=== PATIENT | female | born 1980 | race Caucasian/White ===

== ENCOUNTER 2020-05-06 23:24 | Emergency (ER) | payer OTHER ==
[2020-05-07] MEDS ORDERED: TETANUS & DIPHTHERIA TOX,ADULT 0.5 ML VIAL ONE (00:26)
--- NOTE | 2020-05-07 02:00 | EDPHYS ---
Physician Documentation [facility] Name: France Avila Age: 39 yrs Sex: Female : 1980 Arrival Date: 05/06/2020 Time: 23:26 Bed 13 Private MD: ED Physician Juan C Bravo HPI: 05/06 23:58 This 39 yrs old Female presents to ER via Wheelchair with complaints of Fall kb Injury, Laceration To Head. 23:58 Details of fall: The patient fell from an upright position, while standing. Onset: The kb symptoms/episode began/occurred just prior to arrival. Associated injuries: The patient sustained injury to the head, hematoma, laceration, 2 cm(s). Severity of symptoms: At their worst the symptoms were moderate, in the emergency department the symptoms are unchanged. The patient has not experienced similar symptoms in the past. The patient has not recently seen a physician. 05/07 00:01 Pt reports she had been drinking tonight, got in the shower, slipped and fell causing kb laceration to back of her head. States she doesn't think she lost consciousness. Pt awake, alert and oriented x4. Historical: - Allergies: 05/06 23:40 No Known Allergies; jb4 - Home Meds: 23:40 None [Active]; jb4 - PMHx: 23:40 None; jb4 - PSHx: 23:40 VSG; jb4 - Immunization history:: Adult Immunizations up to date. - Social history:: Smoking status: Patient denies any tobacco usage or history of. Patient uses alcohol, patient/guardian reports recent binge of alcohol consumption. Patient/guardian denies using street drugs. ROS: 23:57 Constitutional: Negative for fever, chills, and weight loss, Cardiovascular: Negative kb for chest pain, palpitations, and edema, Respiratory: Negative for shortness of breath, cough, wheezing, and pleuritic chest pain, Abdomen/GI: Negative for abdominal pain, nausea, vomiting, diarrhea, and constipation, Back: Negative for injury and pain, MS/Extremity: Negative for injury and deformity, Neuro: Negative for headache, weakness, numbness, tingling, and seizure. 23:57 Skin: Positive for laceration(s), of the occipital area. Exam: 23:57 Constitutional: This is a well developed, well nourished patient who is awake, alert, kb and in no acute distress. Neck: Trachea midline, no thyromegaly or masses palpated, and no cervical lymphadenopathy. Supple, full range of motion without nuchal rigidity, or vertebral point tenderness. No Meningismus. Chest/axilla: Normal chest wall appearance and motion. Nontender with no deformity. No lesions are appreciated. Cardiovascular: Regular rate and rhythm with a normal S1 and S2. No gallops, murmurs, or rubs. Normal PMI, no JVD. No pulse deficits. Respiratory: Lungs have equal breath sounds bilaterally, clear to auscultation and percussion. No rales, rhonchi or wheezes noted. No increased work of breathing, no retractions or nasal flaring. Abdomen/GI: Soft, non-tender, with normal bowel sounds. No distension or tympany. No guarding or rebound. No evidence of tenderness throughout. Back: No spinal tenderness. No costovertebral tenderness. Full range of motion. MS/ Extremity: Pulses equal, no cyanosis. Neurovascular intact. Full, normal range of motion. Neuro: Awake and alert, GCS 15, oriented to person, place, time, and situation. Cranial nerves II-XII grossly intact. Motor strength 5/5 in all extremities. Sensory grossly intact. Cerebellar exam normal. Normal gait. 23:57 Skin: injury, laceration(s), the wound is approximately 2 cm(s), of the occipital area, that can be described as clean, no foreign body, linear, with mild bleeding. 05/07 01:56 Head/face: Noted is hematoma, a laceration(s), that is deep, 2 cm(s), of the left justin occipital area and right occipital area. Vital Signs: 05/06 23:40 BP 156 / 114; Pulse 115; Resp 16; Temp 98.2(O); Pulse Ox 99% on R/A; Weight 96.62 kg jb4 (R); Height 5 ft. 5 in. (165.10 cm); Pain 0/10; 05/07 00:30 BP 115 / 77; Pulse 75; Resp 16; Pulse Ox 100% on R/A; jb4 02:00 BP 110 / 75; Pulse 89; Resp 16; Pulse Ox 99% on R/A; jb4 05/06 23:40 Body Mass Index 35.44 (96.62 kg, 165.10 cm) jb4 Laceration: 01:56 Wound Repair of 2cm ( 0.8in ) subcutaneous laceration to right occipital area. Linear justin shaped.. Distal neuro/vascular/tendon intact. Anesthesia: none with 0 mls of 1% lidocaine. Wound prep: Simple cleansing by me. Skin closed with 3 titus Titus using staple gun. Dressed with pressure dressing. Patient tolerated well. MDM: 05/06 23:52 Patient medically screened. kb 23:57 Data reviewed: vital signs, nurses notes. Data interpreted: Pulse oximetry: on room air kb is 99 %. Interpretation: normal. 05/07 01:26 Patient medically screened. justin 02:02 Differential diagnosis: closed head injury, laceration, multiple trauma, sprain. Test justin interpretation: by ED physician or midlevel provider: ECG. Counseling: I had a detailed discussion with the patient and/or guardian regarding: the historical points, exam findings, and any diagnostic results supporting the discharge/admit diagnosis, radiology results, the need for outpatient follow up, for definitive care, a family practitioner. ED course: head precautions given return if worse, limit alcohol. 05/06 23:55 Order name: CT Head C Spine kb 05/06 23:57 Order name: Wound Care; Complete Time: 00:11 kb Administered Medications: 00:22 Drug: Tetanus-Diphtheria Toxoid Adult 0.5 ml {Home Care Attendant: [employer]. Exp: jb4 10/29/2022. Lot #: [id number]. } Route: IM; Site: left deltoid; 00:50 Follow up: Response: No adverse reaction jb4 Disposition: 01:58 Co-signature as Attending Physician, Juan C Bravo MD I agree with the assessment and justin plan of care. Disposition: 05/07/20 02:00 Discharged to Home. Impression: Laceration without foreign body of other part of head - scalp, Fall due to bumping against object, Superficial injury of head. - Condition is Stable. - Discharge Instructions: Alcohol Intoxication, Head Injury, Adult, Alcohol Intoxication, [id number], Alcohol Abuse and Nutrition, Head Injury, Adult, [id number]. - Prescriptions for Keflex 500 mg Oral Capsule - take 1 capsule by ORAL route every 6 hours for 7 days; 28 capsule. - Medication Reconciliation Form, Thank You Letter, Antibiotic Education, Prescription Opioid Use form. - Follow up: Private Physician; When: 2 - 3 days; Reason: Recheck today's complaints, Continuance of care, Re-evaluation by your physician. - Problem is new. - Symptoms have improved. Signatures: Dispatcher [employer] EDMS ConradoAmandeepAleisha, PLANNING MANAGEMENT IT SPECIALIST-C CARLOS-uJan C Ann MD MD cha Bryson, James, RN RN jb4 Jody West RN RN vc Corrections: (The following items were deleted from the chart) 02:24 02:00 05/07/2020 02:00 Discharged to Home. Impression: Laceration without foreign body vc of other part of head - scalp; Fall due to bumping against object; Superficial injury of head. Condition is Stable. Forms are Medication Reconciliation Form, Thank You Letter, Antibiotic Education, Prescription Opioid Use. Follow up: Private Physician; When: 2 - 3 days; Reason: Recheck today's complaints, Continuance of care, Re-evaluation by your physician. Problem is new. Symptoms have improved. justin
--- NOTE | 2020-05-07 02:00 | ER ---
Nurse's Notes [facility] Name: France Avila Age: 39 yrs Sex: Female : 1980 Arrival Date: 05/06/2020 Time: 23:26 Bed 13 Private MD: Diagnosis: Laceration without foreign body of other part of head-scalp;Fall due to bumping against object;Superficial injury of head Presentation: 05/06 23:40 Chief complaint: Patient states: I was drinking, went to the bathroom and slipped in jb4 the tub and hit my head. I did not pass out or loose consciousness. 23:40 Coronavirus screen: Client denies travel out of the [place] in the last 14 days. At this jb4 time, the client does not indicate any symptoms associated with coronavirus-19. Ebola Screen: No symptoms or risks identified at this time. Initial Sepsis Screen: Does the patient meet any 2 criteria? HR > 90 bpm. Yes Does the patient have a suspected source of infection? No. Patient's initial sepsis screen is negative. Risk Assessment: Do you want to hurt yourself or someone else? Patient reports no desire to harm self or others. Onset of symptoms was May 06, 2020. Transition of care: patient was not received from another setting of care. 23:40 Method Of Arrival: Wheelchair jb4 23:40 Acuity: DANIELE 3 jb4 Historical: - Allergies: 23:40 No Known Allergies; jb4 - Home Meds: 23:40 None [Active]; jb4 - PMHx: 23:40 None; jb4 - PSHx: 23:40 VSG; jb4 - Immunization history:: Adult Immunizations up to date. - Social history:: Smoking status: Patient denies any tobacco usage or history of. Patient uses alcohol, patient/guardian reports recent binge of alcohol consumption. Patient/guardian denies using street drugs. Screenin:40 Abuse screen: Denies threats or abuse. Nutritional screening: No deficits noted. jb4 Tuberculosis screening: No symptoms or risk factors identified. Fall Risk None identified. Assessment: 23:40 General: Appears in no apparent distress. comfortable, Behavior is calm, cooperative, jb4 appropriate for age. Pain: Denies pain. Neuro: Level of Consciousness is awake, alert, obeys commands, Oriented to person, place, time, situation. Cardiovascular: Patient's skin is warm and dry. Respiratory: Airway is patent Respiratory effort is even, unlabored, Respiratory pattern is regular, symmetrical. GI: No signs and/or symptoms were reported involving the gastrointestinal system. : No signs and/or symptoms were reported regarding the genitourinary system. EENT: No signs and/or symptoms were reported regarding the EENT system. Derm: Skin is pink, warm \T\ dry. Musculoskeletal: Circulation, motion, and sensation intact. Range of motion: intact in all extremities. Injury Description: Laceration sustained to occipital area is clean, full thickness, 0.5 to 2.5 cm long, not bleeding, a small amount of bleeding noted at this time. 05/07 01:00 Reassessment: Patient appears in no apparent distress at this time. Patient and/or jb4 family updated on plan of care and expected duration. Pain level reassessed. Patient is alert, oriented x 3, equal unlabored respirations, skin warm/dry/pink. 02:00 Reassessment: Patient appears in no apparent distress at this time. Patient and/or jb4 family updated on plan of care and expected duration. Pain level reassessed. Patient is alert, oriented x 3, equal unlabored respirations, skin warm/dry/pink. Vital Signs: 05/06 23:40 BP 156 / 114; Pulse 115; Resp 16; Temp 98.2(O); Pulse Ox 99% on R/A; Weight 96.[address] [facility] (R); Height 5 ft. 5 in. (165.10 cm); Pain 0/10; 05/07 00:30 BP 115 / 77; Pulse 75; Resp 16; Pulse Ox 100% on R/A; 4 02:00 BP 110 / 75; Pulse 89; Resp 16; Pulse Ox 99% on R/A; [facility] 05/06 23:40 Body Mass Index 35.44 (96.62 kg, 165.10 cm) [facility] ED Course: 05/06 23:26 Patient arrived in ED. cf2 23:39 Kraig Greene, RN is Primary Nurse. 4 23:40 Arm band placed on right wrist. 4 23:40 Patient has correct armband on for positive identification. Bed in low position. Call [facility] light in reach. Side rails up X 1. Pulse ox on. NIBP on. 23:49 Triage completed. jb4 05/07 01:11 CT Head C Spine In Process Unspecified. EDMS 01:25 Juan C Bravo MD is Attending Physician. [facility] 02:00 No provider procedures requiring assistance completed. Patient did not have IV access jb4 during this emergency room visit. Administered Medications: 00:22 Drug: Tetanus-Diphtheria Toxoid Adult 0.5 ml {Cellar Supervisor: [employer]. Exp: jb4 10/29/2022. Lot #: [id number]. } Route: IM; Site: left deltoid; 00:50 Follow up: Response: No adverse reaction jb4 Outcome: 02:00 Discharge ordered by . [facility] 02:20 Discharged to home via wheelchair, with family. jb4 02:20 Condition: stable 02:20 Discharge instructions given to patient, Instructed on discharge instructions, follow up and referral plans. medication usage, Demonstrated understanding of instructions, follow-up care, medications, Prescriptions given X 1. 02:24 Patient left the ED. vc Signatures: Dispatcher [employer] EDME Aleisha Camp, TUNNEL KILN REPAIRER-C TUNNEL KILN REPAIRER-Ckb Juan C Bravo MD MD cha Bryson, James, RN RN jb4 Haven Dutta cf2 Jody West, RN RN vc Corrections: (The following items were deleted from the chart) 00:53 00:38 General: Appears in no apparent distress. comfortable, Behavior is calm, jb4 cooperative, appropriate for age, jb4 00:53 00:38 Pain: Denies pain. jb4 jb4 00:53 00:38 Neuro: Level of Consciousness is awake, alert, obeys commands, Oriented to jb4 person, place, time, situation, jb4
--- NOTE | 2020-05-07 15:34 | RAD REPORT ---
EXAM DESCRIPTION: CT - [id number] - 05/07/2020 5:03 am CLINICAL HISTORY: Injury, pain TECHNIQUE: Contiguous axial CT images obtained through the brain without IV contrast. Coronal and sa gittal reformatted images were provided. This exam was performed according to our departmental dose-optimization program, which includes autom ated exposure control, adjustment of the mA and/or kV according to patient size and/or use of iterati ve reconstruction technique. COMPARISON: None available for comparison FINDINGS: Brain: No significant white matter changes. No focal mass effect. Mccoy-white matter differ entiation is within normal limits. No hemorrhage. Ventricles: No ventriculomegaly or midline shift. Extra-axial spaces: No extra-axial collection or hemorrhage. Paranasal sinuses and mastoid air cells: Well-aerated Vessels: Unremarkable Bones: Unremarkable Soft tissues: Moderate right occipital soft tissue hematoma. There are a few soft tissue gas foci com patible with adjacent laceration. IMPRESSION: No acute intracranial or extra-axial abnormality. EXAM DESCRIPTION: CT C-SPINE WITHOUT IV CONTRAST CLINICAL HISTORY: Injury, pain TECHNIQUE: Contiguous axial CT images obtained through the cervical spine without IV contrast. Coron al and sagittal reformatted images also provided. This exam was performed according to our departmental dose-optimization program, which includes autom ated exposure control, adjustment of the mA and/or kV according to patient size and/or use of iterati ve reconstruction technique. COMPARISON: None available for comparison FINDINGS: Vertebra: No acute fracture or subluxation. Disc spaces: Intervertebral disc spaces are fairly well maintained. No canal stenosis. Prevertebral soft tissues: Unremarkable Lung apices: Clear IMPRESSION: No acute injury. Electronically signed by: Ruddy Omalley MD 05/07/2020 1:58 AM CDT Due to temporary technical issues with the PACS/Fluency reporting system, reports are being signed by the in house radiologist without review as a courtesy to ensure prompt reporting. The interpreting r adiologist is fully responsible for the content of the report.
[2020-05-10 19:13] VITALS: BP 156/114; TEMP 98.2; O2SAT 99
== END 2020-05-07 02:24 | disposition home or self-care (01) ==
LOC: ER 23:24
PROC: 0JQ00ZZ Repair Scalp Subcutaneous Tissue and Fascia, Open Approach (ICD-10-PCS; principal; 2020-05-06)
DX: S01.01XA Laceration without foreign body of scalp, initial encounter (principal); W18.2XXA Fall in (into) shower or empty bathtub, initial encounter; Y93.E1 Activity, personal bathing and showering; Y92.002 Bathroom of unspecified non-institutional (private) residence as the place of occurrence of the external cause; Z23 Encounter for immunization
CPT/HCPCS: 70450; 72125; 90471; 90714; 99284